=== PATIENT | male | born 2000 | race African-American/Black ===

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

== ENCOUNTER 2020-07-05 12:46 | Emergency (ER) | payer SELFPAY | END 2020-07-05 15:00 | disposition home or self-care (01) | LOC: ERS 12:46 | DX: R51.9 Headache, unspecified (principal); F17.210 Nicotine dependence, cigarettes, uncomplicated | CPT/HCPCS: 36416; 99284 ==

== ENCOUNTER 2020-07-09 16:50 | Emergency (ER) | payer SELFPAY ==
[2020-07-09] MEDS ORDERED: Metoclopramide HCl 10 MG/2 ML VIAL ONE (19:08)
[2020-07-09] MEDS ORDERED: Ketorolac Tromethamine 30 MG/ML VIAL ONE (19:08)
[2020-07-09] MEDS ORDERED: Dexamethasone 4 mg/ml Vial ONE (19:08)
== END 2020-07-09 19:41 | disposition home or self-care (01) ==
LOC: ERS 16:50
DX: R51.9 Headache, unspecified (principal); F17.210 Nicotine dependence, cigarettes, uncomplicated
CPT/HCPCS: 93005; 96374; 96375; J1100; J1885; J2765